=== PATIENT | male | born 1990 | race African-American/Black ===

== ENCOUNTER 2018-01-08 15:53 | Emergency (ER) | payer SELFPAY ==
[~2018-01-08] VITALS: Ht 167.6 cm; Wt 72.7 kg
[2018-01-08 16:00] VITALS: BP 151/94; PULSE 78; TEMP 97.9
[2018-01-08] MEDS ORDERED: VISTARIL 2525 MG/CAP PO (16:44)
== END 2018-01-08 16:57 | disposition home or self-care (01) ==
LOC: COL.ER 15:53
DX: H57.8 Other specified disorders of eye and adnexa (principal); F17.210 Nicotine dependence, cigarettes, uncomplicated

== ENCOUNTER 2018-01-22 14:33 | Emergency (ER) | payer SELFPAY ==
[~2018-01-22] VITALS: Ht 165.1 cm; Wt 70.5 kg
[~2018-01-22 14:33] MED LIST: VISTARIL 2525 MG/CAP PO
[2018-01-22 14:41] VITALS: BP 137/97; TEMP 98.1
[2018-01-22] MEDS ORDERED: VISTARIL 2525 MG/CAP PO (16:05)
[2018-01-22 16:13] VITALS: PULSE 72
== END 2018-01-22 16:13 | disposition home or self-care (01) ==
LOC: COL.ER 14:33
DX: H02.9 Unspecified disorder of eyelid (principal); F17.210 Nicotine dependence, cigarettes, uncomplicated

== ENCOUNTER → 2018-08-09 | Outpatient (CLI) | payer OTHER | LOC: COL.RAD 09:34 | DX: H02.402 Unspecified ptosis of left eyelid (principal) | CPT/HCPCS: A9585 ==